=== PATIENT | female | born 1990 | race Two or more races ===

== ENCOUNTER 2025-01-24 19:05 | Emergency (ER) | payer MEDICAID, SELFPAY ==
[2025-01-24 19:15] VITALS: BP 150/96; PULSE 89; RESP 18; O2SAT 97
[2025-01-24] MEDS: DEXAMETHASONE SOD PHOS INJ 10 MG/ML VIAL IM (19:46)
[2025-01-24] MEDS: cefTRIAXone 1,000 MG, LIDOCAINE 1% 20 ML 2.1 ML IM (19:47)
--- NOTE | 2025-01-24 23:08 | PD.EDDENTL ---
ED Dental RME/HPI General Chief complaint: Dental/Oral/Throat Stated complaint: Sore throat X 2 days Time Seen by Provider: 01/24/25 19:19 Arrival date/time: 01/24/25 19:05 This is a case of 34-year-old female with no medical history came into the emergency room due to sore throat for 2 days no other symptoms noted denies any fever cough nasal congestion ear pain persistence of the symptoms this patient decided to start consulted in the emergency room no drooling of the no hoarseness of voice Limitations: no limitations Related Data Previous Rx's ?Medication ?Instructions ?Recorded ibuprofen 800 mg tablet 800 mg PO TID PRN pain #30 tabs 02/06/24 amoxicillin 875 mg-potassium 1 tab PO BID #20 tabs 01/24/25 clavulanate 125 mg tablet lidocaine HCl 2 % mucosal solution 10 ml PO Q4HR PRN sore throat #100 01/24/25 (Lidocaine Viscous) mL prednisone 20 mg tablet See Taper PO QDAY 5 days #5 tabs 01/24/25 Allergies Allergy/AdvReac Type Severity Reaction Status Date / Time No Known Allergies Allergy Verified 01/24/25 19:09 Review of Systems Review of Systems Systems Reviewed: All systems reviewed, normal except as documented Constitutional Constitutional: Reports system reviewed and no additional complaints, except as documented and Reports as per HPI ENT Ears, Nose, Mouth, and Throat: Reports system reviewed and no additional complaints, except as documented and Reports as per HPI Cardiovascular Cardiovascular: Reports system reviewed and no additional complaints, except as documented Respiratory Respiratory: Reports system reviewed and no additional complaints, except as documented and Reports as per HPI Gastrointestinal Gastrointestinal: Reports system reviewed and no additional complaints, except as documented and Reports as per HPI Musculoskeletal Musculoskeletal: Reports system reviewed and no additional complaints, except as documented and Reports as per HPI Neurologic Neurologic: Reports system reviewed and no additional complaints, except as documented and Reports as per HPI Past Medical History Past Medical History NEUROLOGIC: Negative Neurological Disorders CARDIAC: Negative Cardiac Disorders or Congestive Heart Failure RESPIRATORY: Negative Chronic Obstructive Pulmonary Disease (COPD) GASTROINTESTINAL: Negative Gastrointestinal Disorders or Hepatitis GENITOURINARY: Positive Genitourinary Disorders (UTI); Negative Renal Disease MUSCULOSKELETAL: Negative Musculoskeletal Disorders ENDOCRINE: Negative Endocrine Disorders, Diabetes Mellitus Type 1 or Diabetes Mellitus Type 2 HEMATOLOGIC: Negative Blood Disorders or Clotting Problems OTHER HISTORY: Positive Hospitalization ([facility] & [facility]), Falls and Chicken Pox; Negative Autoimmune Disease, Blood Transfusions, Anesthesia Reactions, Human Immunodeficiency Virus (HIV), Measles, Mumps, Rubella (Pakistani Measles), Pertussis, Clostridium Difficile or Cancer Family History FAMILY HISTORY: Negative Family Psychiatric Problems, Family Respiratory Disorders, Family Cardiac Disorders, Family Gastrointestinal Problems, Family Cancer, Family Surgery or Family Anesthesia Reaction Surgical History SURGICAL: Positive Abdominal Surgery; Negative Nephrectomy, Joint Replacement or Section Social History SMOKING STATUS: Never smoker ED Exam General Limitations: Present no limitations General appearance: Present alert, in no apparent distress and other (Is awake alert oriented not in distress nontoxic looking well-hydrated well-nourished) Head Head exam: Present atraumatic, normocephalic and normal inspection Eye Eye exam: Present normal appearance, PERRL and EOMI ENT ENT exam: Present normal exam, normal oropharynx and mucous membranes moist Expanded ENT Exam External ear exam: Present other (Nose and ears were normal bilateral tonsils were swollen red with exudate no peritonsillar abscess no drooling of saliva no hoarseness of voice no muffled voice) Neck Neck exam: Present normal inspection, full ROM and trachea midline; Absent tenderness, meningismus, lymphadenopathy or thyromegaly Chest Chest inspection: Present normal inspection and symmetric chest wall rise; Absent tenderness Respiratory Respiratory exam: Present normal lung sounds bilaterally; Absent respiratory distress, wheezes, stridor, accessory muscle use or prolonged expiratory phase Cardiovascular Cardiovascular exam: Present regular rate, normal rhythm and normal heart sounds; Absent bradycardia, tachycardia, irregular rhythm, systolic murmur or diastolic murmur Abdominal Exam Abdominal exam: Present soft and normal bowel sounds; Absent distention, tenderness, guarding, rebound, rigidity, diminished bowel sounds, hyperactive bowel sounds, hypoactive bowel sounds or organomegaly Extremities Exam Extremities exam: Present normal inspection and full ROM Back Exam Back exam: Present normal inspection and full ROM Neurological Exam Neurological exam: Present alert, oriented X3, CN II-XII intact, normal gait and reflexes normal; Absent motor sensory deficit Psychiatric Psychiatric exam: Present normal affect and normal mood Skin Skin exam: Present warm, dry, intact and normal color Course Quality Measures none Orders Category Date Time Status Dexamethasone Inj [Decadron Inj] Med 01/24/25 19:24 Discontinued 10 mg IM X1 ONE cefTRIAXone [Rocephin] 1,000 mg Med 01/24/25 19:24 Discontinued Lidocaine 1% 20 ml [Xylocaine 1% 20 ML] 2.1 ml IM X1 Vital Signs Vital signs: Vital Signs Pulse Rate 89 01/24/25 19:15 Respiratory Rate 18 01/24/25 19:15 Blood Pressure 150/96 H 01/24/25 19:15 Pulse Oximetry (%) 97 01/24/25 19:15 Oxygen Delivery Method Room Air 01/24/25 19:15 Oxygen saturation is 97% in room air Dental / Oral MDM Narrative MDM Narrative:: This is a case of 34-year-old female with no medical history came into the emergency room due to sore throat for 2 days no other symptoms noted denies any fever cough nasal congestion ear pain persistence of the symptoms this patient decided to start consulted in the emergency room no drooling of the no hoarseness of voice physical examination patient is awake alert oriented not in distress nontoxic looking well-hydrated well-nourished lungs sound is clear no crackles no rales no retraction no stridor noted bilateral tonsils swollen red with exudate but no peritonsillar abscess no muffled voice no hot potato voice no drooling of saliva Centor 1/4 the rest of the physical examination neurological exam is normal and unremarkable patient was given a dose of dexamethasone here in the emergency room and ceftriaxone patient will be discharged home with stable condition patient will follow-up with PCP in 2 days for reevaluation she was prescribed with Augmentin ibuprofen and lidocaine viscous as needed for sore throat worsening symptoms or any emergent concern return precaution in the ER is advised Patient was discharged with comfortable condition walking with stable gait. Patient verbalized no further complains explained diagnosis and answered patient question. Patient is comfortable with the proposed management plan including the need to follow up with his/her primary care physician and any specialist if applicable Discussed patient for any urgent condition or worsening sx, He/She needed to go to emergency room immediately or call 911. Patient acknowledge the responsibility to follow up as instructed and to monitor her/his symptoms. For any persistence of the symptoms for more than 3-5 days return precaution advised. Discussed the result of the test and was given printed discharge instruction Patient data External records reviewed:: [facility] previous records Clinical information provided by:: patient Social determinants that could affect healthcare access:: none Patient has the following chronic illnesses:: None How is presenting disease/condition affected by chronic disease/condition?: no chronic disease Evaluation data The following diagnostics were reviewed and interpreted by me:: other (specify) Lab and/or radiology exams considered but not ordered:: None Interpretation Summary: None Medications / Prescriptions Medications or Prescriptions considered but not ordered:: Given Medication administrations:: Medication Administration History Discontinued Medications Ceftriaxone Sodium 1,000 mg/ (Lidocaine HCl 2.1 ml) 0 mg IM X1 ONE Stop: 01/24/25 19:25 Last Admin: 01/24/25 19:47 Dose: 1,000 mg Documented By: BRIAN Dexamethasone Sodium Phosphate (Dexamethasone Sod Phos Inj 10 Mg/Ml Vial) 10 mg IM X1 ONE Stop: 01/24/25 19:25 Last Admin: 01/24/25 19:46 Dose: 10 mg Documented By: BRIAN Given Consultations Consultation(s) initiated? (list below): No Diagnosis Dental Differential Diagnosis: other (Tonsillitis) Most likely diagnosis given after review of the tests above:: Exudative tonsillitis Admission Indicated Admission indicated?: not indicated Explain why admission is indicated or not indicated:: Not indicated Admission Request Was there a request for admission?: No Admission Attestation Admission request attestation: Not indicated Disposition Plan Disposition Plan: Discharge Discharge Attestation Discharge Attestation: The patient and all family members were given an opportunity to ask questions and understood the discharge instructions. Discharge instructions specifically effects, indications for sooner follow up or return to the emergency department, and the expected course of current diagnosis. Patient condition: Stable Discharge Plan Plan Patient Disposition: HOME (Self Care) Prescriptions/Referrals Prescriptions/Med Rec: New amoxicillin-pot clavulanate 875-125 mg tablet 1 tab PO BID Qty: 20 0RF prednisone 20 mg tablet See Taper PO QDAY 5 Days Qty: 5 0RF Taper: Prednisone Taper 20 mg DAILY for 2 Days and 0 Hour 10 mg DAILY for 2 Days and 0 Hour 5 mg DAILY for 7 Days and 0 Hour lidocaine HCl [Lidocaine Viscous] 2 % solution 10 ml PO Q4HR PRN (Reason: sore throat) Qty: 100 0RF No Action ibuprofen 800 mg tablet 800 mg PO TID PRN (Reason: pain) Qty: 30 0RF Problem List Clinical Impression: Exudative tonsillitis Patient/Caregiver Discharge Instructions Education Materials: Tonsillitis in Adults Additional Instructions: Follow-up with your primary care physician in 2 days for reevaluation worsening symptoms or any emergent concern call 911 or go to the nearest emergency room take your medication as directed finish the course of antibiotic warm saline gargle is advised soft diet advised keep hydrated Print Language: Kinyarwanda Stand Alone Forms: Nery Award Info., Patient Portal Info Letter PA/DIVERSIONAL THERAPIST Supervising Physician PA/DIVERSIONAL THERAPIST Supervising Physician: Dr. David Scherer
== END 2025-01-24 20:01 | disposition home or self-care (01) ==
LOC: SERX 20:44
PROVIDERS: Emergency Provider Emergency Medicine
DX: J03.90 Acute tonsillitis, unspecified (principal)
CPT/HCPCS: 96372; 99282; J0696; J1100; J3490

== ENCOUNTER 2025-03-01 20:46 | Emergency (ER) | payer MEDICAID, SELFPAY ==
[2025-03-01 21:06] VITALS: BP 158/95; PULSE 77; RESP 18; TEMP 36.9; O2SAT 98; BMI 26.4
--- NOTE | 2025-03-01 21:11 | XR_ITS ---
Examination: CT brain head without contrast. 2-D sagittal coronal reconstructions Date and time of exam: March 01, 2025, 2134 hours INDICATIONS: Headache dizziness beginning 2 days ago CTDI: vol (mGy): 46.6 DLP: (mGycm): 991 Technique: Multiple CT axial sections of the brain have been obtained, 5 mm slice thickness. Contrast has not been administered. 2-D sagittal, coronal reconstructions have been obtained Low dose protocols were performed. One or more of the following dose reduction techniques were used; automated exposure control, adjustment of the mA and/or KV according to patient size, use of iterative reconstruction technique. Findings: No significant ventricular enlargement. Earring generates artifacts on the left Intra-axial or extra-axial hemorrhage density is not seen. No mass effect or midline shift Basal cisterns are not remarkable. Fourth ventricle is midline. Cranial vault intact. Impression: Negative for acute hemorrhage, mass effect or midline shift
[2025-03-01 21:28] LABS: Basophils # (Auto) 0.1 Thou/mm3 (0.0-0.2); Basophils % (Auto) 1 % (0-2.5); Eosinophils # (Auto) 0.1 Thou/mm3 (0.0-0.5); Eosinophils % (Auto) 1 % (0-10); Hematocrit 43.1 % (36.0-46.0); Hemoglobin 14.2 g/dL (12.0-16.0); Immature Granulocytes Auto 0.03 Thou/mm3 (0.00-0.00); Lymphocytes # (Auto) 3.5 Thou/mm3 (1.0-4.8); Lymphocytes % (Auto) 30 % (10-50); Mean Corpuscular HGB Conc 32.9 g/dl (31.0-37.0); Mean Corpuscular Hemoglobin 29.4 pg (25.0-35.0); Mean Corpuscular Volume 89 fL (80-100); Monocytes # (Auto) 0.6 Thou/mm3 (0.0-0.8); Monocytes % (Auto) 5 % (0-12); Neutrophils # (Auto) 7.5 Thou/mm3 (1.8-7.7); Neutrophils % (Auto) 63 % (37-80); Nucleated Red Blood Cell # 0.00 Thou/mm3 (0.00-0.00); Nucleated Red Blood Cell % 0 /100 WBC (0); Platelet Count 335 Thou/mm3 (140-440); RDW Standard Deviation 43.8 fL (36.4-46.3); Red Blood Count 4.83 Miln/mm3 (4.00-5.20); White Blood Count 11.9 Thou/mm3 (3.6-11.0)
[2025-03-01 21:45] LABS: HCG,Qualitative Serum Negative
[2025-03-01 21:47] LABS: Alanine Aminotransferase 38 U/L (10-49); Albumin, Serum 4.7 gm/dL (3.5-5.0); Albumin/Globulin Ratio 2.1 (1.2-2.2); Alkaline Phosphatase 70 U/L (46-116); Anion Gap 9 (7-16); Aspartate Amino Transferase 23 U/L (0-34); BUN/Creatinine Ratio 10 Ratio (12-20); Bilirubin,Total 0.5 mg/dL (0.3-1.2); Blood Urea Nitrogen 8 mg/dL (9-23); Calcium 9.6 mg/dL (8.3-10.6); Calcium (Corrected) 9.6 mg/dL (8.5-10.1); Carbon Dioxide 28.5 mMol/L (20.0-31.0); Chloride 106 mMol/L (98-107); Creatinine (Component) 0.8 mg/dL (0.6-1.3); Estimated Creatinine Clearance 107.6 mL/min (>60); Globulin 2.2 gm/dL (2.3-3.5); Glucose 92 mg/dL (74-106); Osmolality,Calculated 283 (275-295); Potassium 3.7 mMol/L (3.4-5.1); Sodium 143 mMol/L (136-145); Total Protein 6.9 gm/dL (5.7-8.2); eGFR > 60 See Note
[2025-03-01 22:30] VITALS: BP 166/100; PULSE 80; RESP 17; TEMP 37; O2SAT 98
[2025-03-01] MEDS: KETOROLAC INJ 30 MG/ML VIAL IVP (22:31)
[2025-03-01] MEDS: ONDANSETRON INJ 2 MG/ML INJ 2 ML 4 MG IVP (22:31)
[2025-03-01] MEDS: SODIUM CHLORIDE 0.9% 1000 ML 1,000 ML 999 ML IV (22:32)
[2025-03-01 23:31] VITALS: BP 140/73; PULSE 76; RESP 16; TEMP 37; O2SAT 98
--- NOTE | 2025-05-23 09:51 | EDNOTE_ITS ---
ED Headache RME/HPI General Chief Complaint: Headache Stated Complaint: HEADACHE Time Seen by Provider: 03/01/25 21:09 Arrival date/time: 03/01/25 20:46 This is a case of 34-year-old female with no medical history came in in the emergency room due to headache mostly in the frontal headache throbbing in character with sinus pain and nasal congestion for 3 days patient denies any blurring of vision denies any numbness weakness or tingling sensation no other symptoms noted Limitations: no limitations Related Data Previous Rx's ?Medication ?Instructions ?Recorded ibuprofen 800 mg tablet 800 mg PO TID PRN pain #30 t abs 02/06/24 amoxicillin 875 mg-potassium 1 tab PO BID #20 tabs 03/10 clavulanate 125 mg tablet lidocaine HCl 2 % mucosal solution 10 ml PO Q4HR PRN s ore throat #100 01/24/25 (Lidocaine Viscous) mL amoxicillin 875 mg-potassium 1 tab PO BID #20 tabs clavulanate 125 mg tablet fluticasone propionate 50 1 spray intranasal BID #16 g ruben 03/01/25 mcg/actuation nasal spray,suspension (Flonase Allergy Relief) ibuprofen 600 mg tablet 600 mg PO Q8H PRN pain #20 t abs 03/01/25 ondansetron 4 mg disintegrating 4 mg PO Q8H #20 tabs 1 05/01/24 tablet Allergies Allergy/AdvReac Type Severity Reaction Status Date / Time No Known Allergies Allergy Verified 03/01/25 20:46 Review of Systems Review of Systems Systems Reviewed: All systems reviewed, normal except as documented Past Medical History Past Medical History NEUROLOGIC: Negative Neurological Disorders CARDIAC: Negative Cardiac Disorders or Congestive Heart Failure RESPIRATORY: Negative Chronic Obstructive Pulmonary Disease (COPD) GASTROINTESTINAL: Negative Gastrointestinal Disorders or Hepatitis GENITOURINARY: Positive Genitourinary Disorders; Negative Renal Disease MUSCULOSKELETAL: Negative Musculoskeletal Disorders ENDOCRINE: Negative Endocrine Disorders, Diabetes Mellitus Type 1 or Diabetes Mellitus Type 2 HEMATOLOGIC: Negative Blood Disorders or Clotting Problems OTHER HISTORY: Positive Hospitalization, Falls and Chicken Pox; Negative Autoimmune Disease, Blood Transfusions, Anesthesia Reactions, Human Immunodeficiency Virus (HIV), Measles, Mumps, Rubella ([place] Measles), Pertussis, Clostridium Difficile or Cancer Family History FAMILY HISTORY: Negative Family Psychiatric Problems, Family Respiratory Disorders, Family Cardiac Disorders, Family Gastrointestinal Problems, Family Cancer, Family Surgery or Family Anesthesia Reaction Surgical History SURGICAL: Positive Abdominal Surgery; Negative Nephrectomy, Joint Replacement or Section Social History SMOKING STATUS: Never smoker ED Exam General Limitations: Present no limitations General appearance: Present alert, in no apparent distress and other (Patient is awake alert oriented not in distress nontoxic looking well-hydrated well- nourished) Head Head exam: Present atraumatic, normocephalic and normal inspection Eye Eye exam: Present normal appearance, PERRL, EOMI and other (PERRL EOM intact normal conjunctiva no papilledema) ENT ENT exam: Present normal exam, normal oropharynx, mucous membranes moist and other (Patient have noted a continued tenderness on frontal and maxillary sinus but no nasal polyps or nasal deviation nostrils were red turbinates were red but not swollen the rest of the HEENT exam is normal and unremarkable) Neck Neck exam: Present normal inspection, full ROM, trachea midline and other (Negative for meningeal sign); Absent tenderness, meningismus, lymphadenopathy or thyromegaly Chest Chest inspection: Present normal inspection and symmetric chest wall rise Respiratory Respiratory exam: Present normal lung sounds bilaterally Cardiovascular Cardiovascular exam: Present regular rate, normal rhythm and normal heart sounds Abdominal Exam Abdominal exam: Present soft and normal bowel sounds Extremities Exam Extremities exam: Present normal inspection and full ROM Back Exam Back exam: Present normal inspection and full ROM Neurological Exam Neurological exam: Present alert, oriented X3, CN II-XII intact, normal gait, reflexes normal and other (Patient is awake alert oriented x 4 no focal deficit GCS 15/15 steady gait motor or sensory reflex were all normal in all extremities memory intact no slurring speech no facial droop negative Babinski); Absent motor sensory deficit Psychiatric Psychiatric exam: Present normal affect and normal mood Skin Skin exam: Present warm, dry, intact and normal color Course Quality Measures none Orders Category Date Time Status IV [Insert IV] NOW Care 03/01/25 22:[address] head/brain wo con Stat Exams 03/01/25 21:11 Completed CBC Stat Lab 03/01/25 21:18 Completed CMP [Comprehensive Metabolic Panel] Stat Lab 03/01/25 21:18 Completed HCG,Qualitative Serum Stat Lab 03/01/25 21:18 Completed DiphenhydrAMINE INJ [Benadryl Inj] Med 03/01/25 22:16 Discontinued 25 mg IVP X1 ONE Ketorolac Inj [Toradol Inj] Med 03/01/25 22:16 Discontinued 30 mg IVP X1 ONE Ondansetron Inj [Zofran Inj] Med 03/01/25 22:16 Discontinued 4 mg IVP X1 ONE Sodium Chloride 0.9% 1000 ml [Ns] 1,000 ml Med 03/01/25 22:16 Discontinued IV 999 mls/hr Vital Signs Vital signs: Vital Signs Temperature 98.5 F 03/01/25 21:06 Pulse Rate 77 03/01/25 21:06 Respiratory Rate 18 03/01/25 21:06 Blood Pressure 158/95 H 03/01/25 21:06 Pulse Oximetry (%) 98 03/01/25 21:06 Oxygen Delivery Method Room Air 03/01/25 21:06 Vital signs stable Headache MDM Narrative MDM Narrative:: Patient was discharged with comfortable condition walking with stable gait. Patient verbalized no further complains explained diagnosis and answered patient question. Patient is comfortable with the proposed management plan including the need to follow up with his/her primary care physician and any specialist if applicable Discussed patient for any urgent condition or worsening sx, He/She needed to go to emergency room immediately or call 911. Patient acknowledge the responsibility to follow up as instructed and to monitor her/his symptoms. For any persistence of the symptoms for more than 3-5 days return precaution advised. Discussed the result of the test and was given printed discharge instruction Patient data External records reviewed:: [facility] previous records Clinical information provided by:: patient Social determinants that could affect healthcare access:: none Patient has the following chronic illnesses:: Nonenone How is presenting disease/condition affected by chronic disease/condition?: no chronic disease Evaluation data The following diagnostics were reviewed and interpreted by me:: lab results and radiology exam(s) Lab and/or radiology exams considered but not ordered:: reveiwed Interpretation Summary: reviewed Medications / Prescriptions Medications or Prescriptions considered but not ordered:: given Medication administrations:: Medication Administration History Discontinued Medications Diphenhydramine HCl (Diphenhydramine Inj 50 Mg/Ml Vial) 25 mg IVP X1 ONE Stop: 03/01/25 22:17 Last Admin: 03/01/25 22:32 Dose: 25 mg Documented By: MOOKIE Sodium Chloride (Ns) 1,000 mls @ 999 mls/hr IV .Q1H1M ONE Stop: 03/01/25 23:16 Last Infusion: 03/01/25 23:30 Dose: Infused Documented By: Admin: 03/01/25 22:32 Dose: 999 mls/hr Documented By: MOOKIE Ketorolac Tromethamine (Ketorolac Inj 30 Mg/Ml Vial) 30 mg IVP X1 ONE Stop: 03/01/25 22:17 Last Admin: 03/01/25 22:31 Dose: 30 mg Documented By: MOOKIE Ondansetron HCl (Ondansetron Inj 2 Mg/Ml Inj 2 Ml) 4 mg IVP X1 ONE; Protocol Stop: 03/01/25 22:17 Last Admin: 03/01/25 22:31 Dose: 4 mg Documented By: MOOKIE given Consultations Consultation(s) initiated? (list below): No Diagnosis Differential diagnosis headache: migraine, tension headache, headache and sinusitis Most likely diagnosis given after review of the tests above:: sinus headache Admission Indicated Admission indicated?: not indicated Explain why admission is indicated or not indicated:: not indicated Admission Request Was there a request for admission?: No Admission Attestation Admission request attestation: none Disposition Plan Disposition Plan: Discharge Discharge Attestation Discharge Attestation: The patient and all family members were given an opportunity to ask questions and understood the discharge instructions. Discharge instructions specifically effects, indications for sooner follow up or return to the emergency department, and the expected course of current diagnosis. Patient condition: Stable Discharge Plan Plan Patient Disposition: HOME (Self Care) Patient condition on transfer: Stable Prescriptions/Referrals Prescriptions/Med Rec: New amoxicillin-pot clavulanate 875-125 mg tablet 1 tab PO BID Qty: 20 0RF ibuprofen 600 mg tablet 600 mg PO Q8H PRN (Reason: pain) Qty: 20 0RF ondansetron 4 mg tablet,disintegrating 4 mg PO Q8H Qty: 20 0RF fluticasone propionate [Flonase Allergy Relief] 50 mcg/actuation spray,suspension 1 spray intranasal BID Qty: 16 0RF Rx Instructions: administer into each nostril No Action ibuprofen 800 mg tablet 800 mg PO TID PRN (Reason: pain) Qty: 30 0RF amoxicillin-pot clavulanate 875-125 mg tablet 1 tab PO BID Qty: 20 0RF lidocaine HCl [Lidocaine Viscous] 2 % solution 10 ml PO Q4HR PRN (Reason: sore throat) Qty: 100 0RF Problem List Clinical Impression: Headache, Acute sinus infection Patient/Caregiver Discharge Instructions Education Materials: Self-Care for Headaches, Self-Care for Sinusitis Additional Instructions: Follow-up with your primary care physician in 2 days for reevaluation and to be referred to neurologist for further evaluation and treatment of your headache recurrence persistent worsening symptoms or any emergent concern call 911 or go to the nearest emergency room take your medication as directed finish the course of antibiotic increase water intake keep hydrated Pedialyte Gatorade for every bouts of vomiting and for hydration steam inhalation advised finish the course of antibiotic Print Language: Nepali Stand Alone Forms: Nery Award Info., Patient Portal Info Letter PA/DEATH SURVEYS CODER Supervising Physician PA/DEATH SURVEYS CODER Supervising Physician: Dr. Real
== END 2025-03-01 23:32 | disposition home or self-care (01) ==
PROVIDERS: Nurse Practitioner Family; Emergency Provider Emergency Medicine; PCP Family Medicine
DX: J01.90 Acute sinusitis, unspecified (principal)
CPT/HCPCS: 36415; 70450; 80053; 84703; 85025; 96361; 96374; 96375; 99284; J1200; J1885; J2405; J7030